=== PATIENT | female | born 1985 ===

== ENCOUNTER 2017-03-25 20:37 | Emergency (ER) | payer BC, MEDICAID ==
--- NOTE | 2017-03-25 21:22 | Emergency Department Record ---
History of Present Illness - General Chief complaint: Swelling of legs Stated complaint: SWELLING BOTH LEGS Time Seen by Provider: 03/25/17 21:08 Source: Patient Mode of Arrival: Ambulatory Limitations: No limitations - History of Present Illness Initial comments: pt had a very hard labor 6 days ago which she states the contractions went down to her thighs. she has pain in her thighs ever since and she noted swelling and erythema across the anterior thighs. MD Complaint: Extremity pain, Extremity swelling Onset/Timin -: Days(s) Location: Bilateral Radiation: None Severity scale (1-10): 3 Consistency: Constant, Getting worse Improves with: Nothing Worsens with: Nothing Associated Symptoms: Denies other symptoms - Related Data Home Medications Medication Instructions Recorded Confirmed Last Taken Docusate Sodium [Dok] 1 tab PO ASDIR 03/25/17 03/25/17 Unknown Ferrous Sulfate [Iron] 1 tab PO ASDIR 03/25/17 03/25/17 Unknown Hydrocodone/Acetaminophen 1 tab PO ASDIR 03/25/17 03/25/17 Unknown [Hydrocodone/Acetaminophen 5mg/325mg] Ibuprofen [Ibuprofen] 1 tab PO ASDIR 03/25/17 03/25/17 Unknown Allergies Allergy/AdvReac Type Severity Reaction Status Date / Time No Known Drug Allergies Allergy Unverified 07/24/16 16:04 Travel Screening - Travel/Exposure Within Last 30 Days Have you traveled within the last 30 days?: No - Travel/Exposure Within Last Year Have you traveled outside the [place] in the last year?: No - Additonal Travel Details Have you been exposed to anyone with a communicable illness?: No - Travel Symptoms Symptom Screening: None Review of Systems Reviewed: No additional complaints except as noted below Constitutional: Reports: As per HPI. Denies: Chills, Fever, Malaise, Night sweats, Weakness, Weight change Eyes: Reports: As per HPI. Denies: Eye discharge, Eye pain, Photophobia, Vision change ENT: Reports: As per HPI. Denies: Congestion, Dental pain, Ear pain, Epistaxis , Hearing loss, Throat pain Respiratory: Reports: As per HPI. Denies: Cough, Dyspnea, Hemoptysis, Stridor, Wheezes Cardiovascular: Reports: As per HPI. Denies: Arrhythmia, Chest pain, Dyspnea on exertion, Edema, Murmurs, Orthopnea, Palpitations, Paroxysmal nocturnal dyspnea, Rheumatic Fever, Syncope Endocrine: Reports: As per HPI. Denies: Fatigue, Heat or cold intolerance, Polydipsia, Polyuria Gastrointestinal: Reports: As per HPI. Denies: Abdominal pain, Constipation, Diarrhea, Hematemesis, Hematochezia, Melena, Nausea, Vomiting Genitourinary: Reports: As per HPI. Denies: Abnormal menses, Discharge, Dyspareunia, Dysuria, Frequency, Hematuria, Incontinence, Retention, Urgency Musculoskeletal: Reports: As per HPI. Denies: Arthralgia, Back pain, Gout, Joint swelling, Myalgia, Neck pain Skin: Reports: As per HPI. Denies: Bruising, Change in color, Change in hair/ nails, Lesions, Pruritus, Rash Neurological: Reports: As per HPI. Denies: Abnormal gait, Confusion, Headache, Numbness, Paresthesias, Seizure, Tingling, Tremors, Vertigo, Weakness Psychiatric: Reports: As per HPI. Denies: Anxiety, Auditory hallucinations, Depression, Homicidal thoughts, Suicidal thoughts, Visual hallucinations Hematological/Lymphatic: Reports: As per HPI. Denies: Anemia, Blood Clots, Easy bleeding, Easy bruising, Swollen glands Past Medical History - SOCIAL HISTORY Smoking Status: Never smoker Alcohol Use: None Drug Use: None - RESPIRATORY Hx Respiratory Disorders: No - CARDIOVASCULAR Hx Cardio Disorders: No - NEURO Hx Neuro Disorders: No - GI Hx GI Disorders: No - Hx Genitourinary Disorders: No - ENDOCRINE Hx Endocrine Disorders: No - MUSCULOSKELETAL Hx Musculoskeletal Disorders: No - PSYCH Hx Psych Problems: No - HEMATOLOGY/ONCOLOGY Hx Hematology/Oncology Disorders: No Family Medical History Any Significant Family History?: No Physical Exam - General General Appearance: Alert, Oriented x3, Cooperative, Mild distress - Head Head exam: Normal inspection - Eye Eye exam: Normal appearance, PERRL, EOMI Pupils: Normal accommodation - ENT ENT exam: Normal exam, Mucous membranes moist, Normal external ear exam, Normal orophraynx, TM's normal bilaterally Ear exam: Normal external inspection. negative: External canal tenderness Nasal Exam: Normal inspection. negative: Discharge, Sinus tenderness Mouth exam: Normal external inspection, Tongue normal Teeth exam: Normal inspection. negative: Dental caries Throat exam: Normal inspection. negative: Tonsillar erythema, Tonsillar exudate - Neck Neck exam: Normal inspection, Full ROM. negative: Tenderness - Respiratory Respiratory exam: Normal lung sounds bilaterally. negative: Respiratory distress - Cardiovascular Cardiovascular Exam: Regular rate, Normal rhythm, Normal heart sounds - GI/Abdominal GI/Abdominal exam: Soft, Normal bowel sounds. negative: Tenderness - Rectal Rectal exam: Deferred - exam: Deferred - Extremities Extremities exam: Normal inspection, Full ROM, Normal capillary refill. negative: Tenderness Image of Full Body: 1 - tender, swelling, erythema 2 - swelling, tender, erythema - Back Back exam: Reports: Normal inspection, Full ROM. Denies: Muscle spasm, Rash noted, Tenderness - Neurological Neurological exam: Alert, CN II-XII intact, Normal gait, Oriented X3 - Psychiatric Psychiatric exam: Normal affect, Normal mood - Skin Skin exam: Dry, Intact, Normal color, Warm Course Vital Signs 03/25/17 20:51 Temperature 98.0 F Pulse Rate 76 Respiratory 20 Rate Blood Pressure 101/58 Pulse Ox 97 - Reevaluation(s) Reevaluation #1: 03/25/17 21:23 though this appears to be quad strain i did offer to transfer pt to [facility] for dopplers. she refused and stated she would return if she felt worse or pain moved Disposition Disposition: Discharge Clinical Impression: Quadriceps muscle strain Qualifiers: Encounter type: initial encounter Laterality: unspecified laterality Qualified Code(s): S76.119A - Strain of unspecified quadriceps muscle, fascia and tendon, initial encounter Disposition: Home, Self-Care Condition: (1) Good Instructions: Muscle Strain (ED) Additional Instructions: follow up with family doctor. return sooner if worse. ice and moist heat Quality - Quality Measures Quality Measures: N/A - Blood Pressure Screening Does Patient Have Any of the Following: No Blood Pressure Classification: Normal BP Reading Systolic Measurement: 101 Diastolic Measurement: 58 Screening for High Blood Pressure: < Normal BP, F/U Not Required > [[id number]]
== END 2017-03-25 21:30 | disposition home or self-care (01) ==
LOC: ER 20:37
DX: O90.89 Other complications of the puerperium, not elsewhere classified (principal); S76.112A Strain of left quadriceps muscle, fascia and tendon, initial encounter; S76.111A Strain of right quadriceps muscle, fascia and tendon, initial encounter; X50.1XXA Overexertion from prolonged static or awkward postures, initial encounter; Y93.89 Activity, other specified
CPT/HCPCS: 99282